=== PATIENT | male | born 1980 | race Caucasian/White ===

== ENCOUNTER 2016-04-21 19:21 | Emergency (ER) | payer OTHER ==
[~2016-04-21] VITALS: Ht 175.3 cm; Wt 77.7 kg
[2016-04-21 19:27] VITALS: Ht 175.3 cm; Wt 77.7 kg
[2016-04-21 20:52] LABS: URINE BLOOD (Dip) POC 1+ (NEGATIVE)
[2016-04-21 20:57] LABS: URINE BLOOD (Dip) POC 1+ (NEGATIVE)
[2016-04-21] MEDS ORDERED: HYDROCODONE/APAP (10/325) TAB PO ONE (21:30)
--- NOTE | 2016-04-21 22:18 | RADRPT ---
PROCEDURE: XR Right Hip. CLINICAL INDICATION: Trauma. Pain. TECHNIQUE: AP and frog lateral views of the right hip were performed. COMPARISON: None. FINDINGS: No fracture or osseous lesion is identified. Joint relationships are maintained. There is no dislo cation. Bone mineralization is within normal limits. The soft tissues are unremarkable. IMPRESSION: 1. Unremarkable right hip x-rays series. RPTAT: [facility] .Berlin Alvarez MD, Date Time Electronically viewed and signed by .Berlin Alvarez MD, MD on 04/21/2016 22:18 .K/
[2016-04-21] MEDS ORDERED: IBUP-1542 PO (22:31)
[2016-04-21] MEDS ORDERED: HYDR-906 PO (22:31)
--- NOTE | 2016-04-21 22:45 | ERD ---
ER Documentation Chief Complaint Date/Time DATE: 04/21/16 TIME: 22:41 Chief Complaint C/O RIGHT HIP PAIN FELL WHILE IN THE SNOW X1 HR. HPI This is a 35-year-old male presents to the ER with right hip pain after he hit his thigh against his younger son. After his hit his thigh against his younger son's leg patient states he felt immediate right hip pain. Patient did not fall as stated in the triage note. Patient denies any numbness or tingling of his leg. Pain is described as moderate burning sensation that is worse with movement. Patient took ibuprofen 800 mg for the pain however it did not work. Patient denies any lower back pain. He denies any urinary bowel incontinence. ROS 12 point review of systems was done, all negative except per HPI. Medications Home Meds Active Scripts Ibuprofen* (Motrin*) 600 Mg Tab, 600 MG PO Q6, #30 TAB Prov:EDY POOLE C 04/21/16 Hydrocodone/Acetaminophen (Agency 5-325 Tablet) 1 Each Tablet, 1 TAB PO Q6H Y for PAIN, #20 TAB Prov:EDY POOEL 04/21/16 Allergies Allergies: Coded Allergies: No Known Drug Allergies (Verified Allergy, Unknown, 04/21/16) PMhx/Soc Medical and Surgical Hx: pt denies Medical Hx, pt denies Surgical Hx Hx Alcohol Use: No Hx Substance Use: No Hx Tobacco Use: No Smoking Status: Never smoker Physical Exam Vitals Vital Signs Date Time Temp Pulse Resp B/P Pulse Ox O2 Delivery O2 Flow Rate FiO2 04/21/16 19:27 97.6 74 18 140/84 97 Physical Exam GENERAL: The patient is well developed and appropriate for usual state of health , in no apparent distress. HEENT: Atraumatic CHEST: Clear to auscultation bilaterally. There are no rales, wheezes or rhonchi. HEART: Regular rate and rhythm. No murmurs, clicks, rubs or gallops. EXTREMITIES: patient is ttp to the right side/hip. no ecchymosis, no deformities. ROM is painful however is normal. NEURO: Alert and oriented. SKIN: The skin is warm and dry. Results 24 hrs Laboratory Tests Test 04/21/16 20:51 Bedside Urine Blood 1+ Bedside Urine Glucose (UA) Negative Bedside Urine Ketones (LAB) Negative Bedside Urine Leukocyte Esterase (L Negative Bedside Urine Nitrite (LAB) Negative Bedside Urine Protein (LAB) Trace Bedside Urine pH (LAB) 6.0 Current Medications Medications (Trade) Dose Ordered Sig/Latha Route PRN Reason Start Time Stop Time Status Last Admin Dose Admin Acetaminophen/ Hydrocodone Bitart (Agency ()) 1 tab ONCE ONCE PO 04/21/16 21:30 04/21/16 21:31 DC 04/21/16 21:49 Procedures/MDM This is a 35-year-old male that presents to the ER after he hurt his right side. Patient states that he hit his thigh with his youngest son's leg and when that happened he immediately began to have right sided hip pain. There is no evidence of trauma there is no ecchymosis. Patient has normal range of motion of his hip. He is afebrile and well-appearing. X-rays were negative for fractures or dislocations. Patient may have a hip strain. Patient is to follow-up with his primary care doctor within 1-2 days or return to ER sooner if symptoms worsen. Plan was discussed with the patient he understands and agrees with plan. Departure Diagnosis: Primary Impression: Hip pain Condition: Stable Patient Instructions: Hip Contusion Additional Instructions: Llame al doctor SIVAKUMAR y isael agatha IAN PARA DENTRO DE 1-2 BUTTS.Dgale a la secretaria que nosotros le instruimos hacer esta ian.Avise o llame si bain condicin se empeora antes de la ian. Regresa aqui si peor o no mejor. EDY POOLE Apr 21, 2016 22:45
[2016-04-21 22:49] VITALS: BP 123/85; PULSE 71; RESP 16; TEMP 98.1
== END 2016-04-21 22:49 | disposition home or self-care (01) ==
LOC: FTE 19:21
DX: S79.911A Unspecified injury of right hip, initial encounter (principal); W00.0XXA Fall on same level due to ice and snow, initial encounter; Y92.9 Unspecified place or not applicable
CPT/HCPCS: 73510; 81003